=== PATIENT | male | born 1955 | race African-American/Black ===

== ENCOUNTER 2022-02-21 04:35 | Day surgery (SDC) | payer MEDICARE ==
[2022-02-12 13:38] VITALS: BMI 38.0
[2022-02-21] MEDS ORDERED: MIDAZOLAM HCL 2 MG/2 ML SINGLE DOSE VIAL ONE (10:22)
[2022-02-21] MEDS ORDERED: TETRACAINE/BENZOCAINE/BUTAMBEN 20 GM SPR TP ONE (10:28)
[2022-02-21 11:05] VITALS: TEMP 97.7
[2022-02-21 12:34] VITALS: BP 122/79; PULSE 84; RESP 18
== END 2022-02-21 13:02 | disposition home or self-care (01) ==
LOC: JASU-ENDO 04:35
PROVIDERS: ATTEND Internal Medicine Gastroenterology
PROC: 0DB28ZX Excision of Middle Esophagus, Via Natural or Artificial Opening Endoscopic, Diagnostic (ICD-10-PCS; 2022-02-21)
PROC: 0D748ZZ Dilation of Esophagogastric Junction, Via Natural or Artificial Opening Endoscopic (ICD-10-PCS; 2022-02-21)
PROC: 0DB38ZX Excision of Lower Esophagus, Via Natural or Artificial Opening Endoscopic, Diagnostic (ICD-10-PCS; principal; 2022-02-21 11:30)
DX: K21.00 Gastro-esophageal reflux disease with esophagitis, without bleeding (principal); K22.2 Esophageal obstruction; K22.6 Gastro-esophageal laceration-hemorrhage syndrome; I10 Essential (primary) hypertension; E11.9 Type 2 diabetes mellitus without complications; Z79.84 Long term (current) use of oral hypoglycemic drugs
CPT/HCPCS: 82962; 88305-TC

== ENCOUNTER 2022-05-07 04:06 | Day surgery (SDC) | payer MEDICARE ==
[2022-05-01 16:24] VITALS: BMI 38.0
[2022-05-07] MEDS ORDERED: EPINEPHrine 1:10,000 (P-F SYR) 1 MG/10 ML DISP.SYRIN ONE (09:17)
[2022-05-07 10:09] VITALS: PULSE 69
[2022-05-07 10:33] VITALS: BP 116/67; RESP 19; TEMP 97
== END 2022-05-07 11:36 | disposition home or self-care (01) ==
LOC: JASU-ENDO 04:06
PROVIDERS: ATTEND Internal Medicine Gastroenterology
PROC: 0DBN8ZX Excision of Sigmoid Colon, Via Natural or Artificial Opening Endoscopic, Diagnostic (ICD-10-PCS; 2022-05-07)
PROC: 0DBP8ZX Excision of Rectum, Via Natural or Artificial Opening Endoscopic, Diagnostic (ICD-10-PCS; principal; 2022-05-07 09:00)
DX: Z12.11 Encounter for screening for malignant neoplasm of colon (principal); K63.5 Polyp of colon; K64.8 Other hemorrhoids; K62.89 Other specified diseases of anus and rectum
CPT/HCPCS: 82962; 88305-TC